=== PATIENT | female | born 1965 | race Caucasian/White ===

== ENCOUNTER 2024-11-28 09:51 | Emergency (ER) | payer MEDICAID ==
[~2024-11-28] VITALS: Ht 175.3 cm; Wt 98.0 kg
[2024-11-28 10:00] VITALS: O2SAT 98
[2024-11-28] MEDS: KETOROLAC 30MG/ML VIAL IV ONE (11:14)
[2024-11-28 13:19] VITALS: BP 114/64; PULSE 92; RESP 18; TEMP 36.8; O2SAT 100
== END 2024-11-28 13:22 | disposition home or self-care (01) ==
LOC: ER 09:51
DX: S63.501A Unspecified sprain of right wrist, initial encounter (principal); E11.9 Type 2 diabetes mellitus without complications; Z98.890 Other specified postprocedural states; X50.0XXA Overexertion from strenuous movement or load, initial encounter; Y93.89 Activity, other specified; Y92.89 Other specified places as the place of occurrence of the external cause; Y99.8 Other external cause status
CPT/HCPCS: 73110; 29125; 96374; 99283; J1885; Z7610; A6449